=== PATIENT | male | born 1930 | race Caucasian/White ===

== ENCOUNTER 2017-03-15 18:10 | Emergency (ER) | payer MEDICARE, OTHER ==
[2017-03-15 18:41] VITALS: BP 146/59
--- NOTE | 2017-03-15 19:13 | EDM.PDOC ---
ED HPI GENERAL MEDICAL PROBLEM - General Chief Complaint: Genitourinary Problem Stated Complaint: SENT FROM [facility] Time Seen by Provider: 03/15/17 18:55 Source of Information: Reports: Patient, Mcc Records History Limitations: Reports: Altered Mental Status - History of Present Illness INITIAL COMMENTS - FREE TEXT/NARRATIVE: Patient is a 86-year-old male with history of Alzheimer's who presents to the ED complaining of right testicular pain with redness and swelling noted to the scrotum. He was sent from [facility] for further evaluation for testicular torsion. Per skilled nursing notes this pain started on Saturday and has been constant in nature. Upon admission to the ED patients afebrile complaining of right testicle pain. He is a poor historian. There's been no documented fever, nausea/vomiting, abdominal pain, dysuria, or any additional complaints. Code status is DNR. Patient is a history of BPH, bradycardic, neuropathy, anxiety, chronic atrial fibrillation, heart failure, hearing loss, and hypertension. Current medications include acetaminophen, warfarin, Risperdal, Benadryl B12, gabapentin, lisinopril, Norvasc, Tamulosin, finasteride, Namenda Generalized Pain Score (Numeric/FACES): 9 - Related Data Allergies Allergy/AdvReac Type Severity Reaction Status Date / Time No Known Allergies Allergy Verified 03/15/17 18:43 Home Meds: Home Meds Acetaminophen [Tylenol] 975 mg PO DAILY 01/20/15 [History] Furosemide 40 mg PO DAILY 01/20/15 [History] Gabapentin [Neurontin] 600 mg PO BID 01/20/15 [History] Lisinopril 30 mg PO DAILY 01/20/15 [History] Lutein/Min/Vit C/Vit E Acetate [Ocuvite Lutein] 1 cap PO DAILY 01/20/15 [History ] Memantine [Namenda] 10 mg PO BEDTIME 01/20/15 [History] Tamsulosin HCl 1 cap PO BEDTIME 01/20/15 [History] Warfarin Sodium [Coumadin] 7.5 mg PO ASDIRECTED 01/20/15 [History] Acetaminophen [Tylenol] 650 mg PO Q6HR PRN 03/15/17 [History] Ciprofloxacin HCl [Cipro] 500 mg PO BID #14 tablet 03/15/17 [Rx] Finasteride 5 mg PO DAILY 03/15/17 [History] Simethicone 80 mg PO ASDIRECTED PRN 03/15/17 [History] Warfarin [Coumadin] 5 mg PO ASDIRECTED 03/15/17 [History] amLODIPine [Norvasc] 10 mg PO DAILY 03/15/17 [History] risperiDONE [Risperdal] 0.5 mg PO BID 03/15/17 [History] Past Medical History Other HEENT History: wears glasses Other Genitourinary History: 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 ED EXAM, RENAL/ - Physical Exam Exam: See Below Exam Limited By: Altered Mental Status General Appearance: Alert, WD/WN, No Apparent Distress Ears: Hearing Grossly Normal Nose: Normal Inspection Throat/Mouth: Normal Voice, No Airway Compromise Neck: Normal Inspection, Supple Respiratory/Chest: No Respiratory Distress, Normal Breath Sounds, No Accessory Muscle Use, Chest Non-Tender Cardiovascular: Normal Peripheral Pulses, Irregularly Irregular, Other ( Telemetry revealed episodes of runs of Vtach) GI/Abdominal: Normal Bowel Sounds, Soft, Non-Tender, No Organomegaly, No Distention (Male) Exam: Scrotal Swelling, Scrotum Tenderness (L), Scrotum Tenderness (R) , Testicular Tenderness (R). No: Inguinal Lymphadenopathy, Testicular Tenderness (L), Urethral Discharge Back Exam: Normal Inspection Neurological: Alert, CN II-XII Intact, No Motor/Sensory Deficits, Confused Psychiatric: Normal Affect, Normal Mood Skin Exam: Warm, Dry, Intact Course - Vital Signs Last Recorded V/S: Last Vital Signs Temp 98.1 F 03/15/17 18:35 Pulse 57 L 03/15/17 18:35 Resp 18 03/15/17 18:35 BP 146/59 H 03/15/17 18:35 Pulse Ox 98 03/15/17 18:35 - Orders/Labs/Meds Orders: Active Orders 24 hr Category Date Time Status EKG 12 Lead [EKG Documentation Completion] [RC] STAT Care 03/15/17 19:06 Active Peripheral IV Care [RC] . DIRECTED Care 03/15/17 19:15 Active CULTURE URINE [RM] Stat Lab 03/15/17 18:35 Received Sodium Chloride 0.9% [Saline Flush] Med 03/15/17 19:15 Active 10 ml FLUSH ASDIRECTED PRN Peripheral IV Insertion Adult [OM.PC] Stat Oth 03/15/17 19:15 Ordered Medication Orders Sodium Chloride (Saline Flush) 10 ml FLUSH ASDIRECTED PRN PRN Reason: Keep Vein Open Last Admin: 03/15/17 21:04 Dose: 10 ml Labs: Laboratory Tests 03/15/17 03/15/17 03/15/17 Range/Units 18:35 19:23 19:23 WBC 5.01 (4.23-9.07) K/mm3 RBC 4.15 L (4.63-6.08) M/mm3 Hgb 12.1 L (13.7-17.5) gm/L Hct 36.8 L (40.1-51.0) % MCV 88.7 (79.0-92.2) fl MCH 29.2 (25.7-32.2) pg MCHC 32.9 (32.2-35.5) g/dl RDW Std Deviation 48.6 H (35.1-43.9) fL Plt Count 187 (163-337) K/mm3 MPV 10.5 (9.4-12.3) fl Neut % (Auto) 66.8 (34.0-67.9) % Lymph % (Auto) 18.8 L (21.8-53.1) % Porter % (Auto) 12.2 (5.3-12.2) % Eos % (Auto) 1.8 (0.8-7.0) Baso % (Auto) 0.2 (0.1-1.2) % Neut # (Auto) 3.35 (1.78-5.38) K/mm3 Lymph # (Auto) 0.94 L (1.32-3.57) K/mm3 Porter # (Auto) 0.61 (0.30-0.82) K/mm3 Eos # (Auto) 0.09 (0.04-0.54) K/mm3 Baso # (Auto) 0.01 (0.01-0.08) K/mm3 PT (8.0-13.0) SECONDS INR Sodium 138 (136-145) mEq/L Potassium 4.0 (3.5-5.1) mEq/L Chloride 102 (98-107) mEq/L Carbon Dioxide 25 (21-32) mEq/L Anion Gap 15.0 (5-15) BUN 25 H (7-18) mg/dL Creatinine 1.3 (0.7-1.3) mg/dL Est Cr Clr Drug Dosing 43.94 mL/min Estimated GFR (MDRD) 52 (>60) mL/min BUN/Creatinine Ratio 19.2 H (14-18) Glucose 144 H (83-115) mg/dL Calcium 8.4 L (8.5-10.1) mg/dL Magnesium 1.9 (1.8-2.4) mg/dl Total Bilirubin 0.3 (0.2-1.0) mg/dL AST 17 (15-37) U/L ALT 16 (16-63) U/L Alkaline Phosphatase 53 (46-116) U/L C-Reactive Protein 3.3 H* (<1.0) mg/dL Total Protein 7.7 (6.4-8.2) g/dl Albumin 3.4 (3.4-5.0) g/dl Globulin 4.3 gm/dL Albumin/Globulin Ratio 0.8 L (1-2) Urine Color Yellow (Yellow) Urine Appearance Slt cloudy H (Clear) Urine pH 6.0 (5.0-8.0) Ur Specific [place] 1.015 (1.005-1.030) Urine Protein Negative (Negative) Urine Glucose (UA) Negative (Negative) Urine Ketones Negative (Negative) Urine Occult Blood 1+ H (Negative) Urine Nitrite Positive H (Negative) Urine Bilirubin Negative (Negative) Urine Urobilinogen 0.2 (0.2-1.0) Ur Leukocyte Esterase 3+ H (Negative) Urine RBC 0-5 (0-5) /hpf Urine WBC 75-100 H (0-5) /hpf Ur Epithelial Cells 0-5 (0-5) /hpf Urine Bacteria Many H (FEW) /hpf Urine Mucus Few (FEW) /hpf 03/15/17 Range/Units 19:23 WBC (4.23-9.07) K/mm3 RBC (4.63-6.08) M/mm3 Hgb (13.7-17.5) gm/L Hct (40.1-51.0) % MCV (79.0-92.2) fl MCH (25.7-32.2) pg MCHC (32.2-35.5) g/dl RDW Std Deviation (35.1-43.9) fL Plt Count (163-337) K/mm3 MPV (9.4-12.3) fl Neut % (Auto) (34.0-67.9) % Lymph % (Auto) (21.8-53.1) % Porter % (Auto) (5.3-12.2) % Eos % (Auto) (0.8-7.0) Baso % (Auto) (0.1-1.2) % Neut # (Auto) (1.78-5.38) K/mm3 Lymph # (Auto) (1.32-3.57) K/mm3 Porter # (Auto) (0.30-0.82) K/mm3 Eos # (Auto) (0.04-0.54) K/mm3 Baso # (Auto) (0.01-0.08) K/mm3 PT 20.7 H (8.0-13.0) SECONDS INR 1.83 Sodium (136-145) mEq/L Potassium (3.5-5.1) mEq/L Chloride (98-107) mEq/L Carbon Dioxide (21-32) mEq/L Anion Gap (5-15) BUN (7-18) mg/dL Creatinine (0.7-1.3) mg/dL Est Cr Clr Drug Dosing mL/min Estimated GFR (MDRD) (>60) mL/min BUN/Creatinine Ratio (14-18) Glucose (83-115) mg/dL Calcium (8.5-10.1) mg/dL Magnesium (1.8-2.4) mg/dl Total Bilirubin (0.2-1.0) mg/dL AST (15-37) U/L ALT (16-63) U/L Alkaline Phosphatase (46-116) U/L C-Reactive Protein (<1.0) mg/dL Total Protein (6.4-8.2) g/dl Albumin (3.4-5.0) g/dl Globulin gm/dL Albumin/Globulin Ratio (1-2) Urine Color (Yellow) Urine Appearance (Clear) Urine pH (5.0-8.0) Ur Specific [place] (1.005-1.030) Urine Protein (Negative) Urine Glucose (UA) (Negative) Urine Ketones (Negative) Urine Occult Blood (Negative) Urine Nitrite (Negative) Urine Bilirubin (Negative) Urine Urobilinogen (0.2-1.0) Ur Leukocyte Esterase (Negative) Urine RBC (0-5) /hpf Urine WBC (0-5) /hpf Ur Epithelial Cells (0-5) /hpf Urine Bacteria (FEW) /hpf Urine Mucus (FEW) /hpf Meds: Medications Generic Name Dose Route Start Last Admin Trade Name Freq PRN Reason Stop Dose Admin Sodium Chloride 10 ml 03/15/17 19:15 03/15/17 21:04 Saline Flush FLUSH 10 ml ASDIRECTED PRN Administration Keep Vein Open Discontinued Medications Generic Name Dose Route Start Last Admin Trade Name Freq PRN Reason Stop Dose Admin Levofloxacin/Dextrose 750 mg/ 150 mls @ 100 mls/hr 03/15/17 20:33 Premix IV 03/15/17 22:02 ONETIME ONE Cefepime HCl 2 gm/ Premix 50 mls @ 100 mls/hr 03/15/17 20:47 03/15/17 21:01 IV 03/15/17 21:16 100 mls/hr ONETIME ONE Administration - Re-Assessments/Exams Free Text/Narrative Re-Assessment/Exam: Peripheral IV ordered. Initial labs and studies include CBC, chem 14, CRP, INR, and magnesium level. Will obtain a EKG along with ultrasound of the scrotum and contents. During examination patient's had multiple episodes of runs of V. tach along this PM 8 beats. EKG showed atrial fibrillation with bigeminal PVCs. QTC was greater than 500. Labs reviewed: White blood cell count 5.01, hemoglobin 12.1, platelet count 27, no neutrophilia. INR 1.83 which is subtherapeutic. Chemistry panel is essentially normal. CRP 3.3. UA revealed occult blood 1+, positive nitrates, leukocyte esterase 3+, wbc's 75- 100, bacteria many. Urine culture ordered. Ordered Levaquin 750 mg IV. This has been canceled due to the prolonged QTC. Will look for other options. Patient is on calcium channel audrey which would prolong QTC as well. 03/15/17 20:48 ordered cefepime 2 g IV. 03/15/17 21:[address] Lee consulting it architect hospitalist discussed patient and ekg findings with her. Suggested sticking with cipro or levaquin.QTC is caused by calcium channel audrey. If required may have holter monitor placed to evaluate for frequency of pvc's. No admission required. Will discharge patient home with prescription for cipro 500mg twice a day for 7 days. Testicular ultrasound revealed large bilateral hydroceles with no other abnormality is definitely appreciated on to exclude ultrasound exam. Patient has no testicular torsion. He has a UTI. Holter monitor ordered. Departure - Departure Time of Disposition: 21:52 Disposition: Home, Self-Care 01 Condition: Good Clinical Impression: Bilateral hydrocele, Right testicular pain, Complicated UTI (urinary tract infection), Ventricular tachycardia (paroxysmal) - Discharge Information Prescriptions: Ciprofloxacin HCl [Cipro] 500 mg PO BID #14 tablet Instructions: Urinary Tract Infection, Adult, [id number] Referrals: Balta Cortes MD [Primary Care Provider] - Forms: ED Department Discharge Additional Instructions: Ultrasound of the testicles revealed bilateral hydroceles which can contribute to testicular pain. UA was positive for urinary tract infection. He did have some runs of ventricular tachycardia with frequent PVCs. This appeared to slow down while evaluated in the E.D. Holter monitor ordered to evaluate for frequency of events. Patient will be placed on cipro 500mg twice a day for 7 days. Please followup with PCP in 9 days for UA testing to ensure resolution and discuss results of holter monitor. Continue to take all home medications as prescribed. He will also require INR testing at at conclusion of antibiotic therapy to ensure INR is not supratherapeutic. INR was 1.83 upon evaluation in the E.D. Return to the E.D. if you develop any new or worsening symptoms. - My Orders Last 24 Hours: My Active Orders 03/15/17 18:35 CULTURE URINE [RM] Stat 03/15/17 19:06 EKG 12 Lead [EKG Documentation Completion] [RC] STAT 03/15/17 19:15 Peripheral IV Care [RC] . DIRECTED Sodium Chloride 0.9% [Saline Flush] 10 ml FLUSH ASDIRECTED PRN Peripheral IV Insertion Adult [OM.PC] Stat - Assessment/Plan Last 24 Hours: My Active Orders 03/15/17 18:35 CULTURE URINE [RM] Stat 03/15/17 19:06 EKG 12 Lead [EKG Documentation Completion] [RC] STAT 03/15/17 19:15 Peripheral IV Care [RC] . DIRECTED Sodium Chloride 0.9% [Saline Flush] 10 ml FLUSH ASDIRECTED PRN Peripheral IV Insertion Adult [OM.PC] Stat
[2017-03-15] MEDS ORDERED: Sodium Chloride 0.9% 10 ML Syringe FLUSH PRN (19:15)
[2017-03-15] MEDS ORDERED: Levofloxacin/Dextrose 5%-Water 750 MG in Premix Bag 1 BAG IV ONE (20:33)
[2017-03-15] MEDS ORDERED: Cefepime 2 GM in Premix Bag 1 BAG IV ONE (20:47)
--- NOTE | 2017-03-15 21:32 | US ---
Testicular ultrasound: Multiple real-time images of the testicles were obtained. Large hydroceles are seen on both sides. Both arterial and venous blood flow is seen within the testicles. No discrete nodule or mass is seen within the testicles. Measurements: Right testicle: 3.7 x 2.4 x 2.2 cm Left testicle: 3.4 x 2.6 x 2.4 cm. Impression: 1. Large bilateral hydroceles. 2. No other abnormality is definitely appreciated on testicular ultrasound exam. Diagnostic code #3
== END 2017-03-15 22:35 | disposition home or self-care (01) ==
LOC: JD.ED 18:10
DX: N43.3 Hydrocele, unspecified (principal); N39.0 Urinary tract infection, site not specified; I47.2 Ventricular tachycardia; G30.9 Alzheimer's disease, unspecified; F02.80 Dementia in other diseases classified elsewhere, unspecified severity, without behavioral disturbance, psychotic disturbance, mood disturbance, and anxiety; I11.0 Hypertensive heart disease with heart failure; I50.9 Heart failure, unspecified; Z79.899 Other long term (current) drug therapy; Z79.01 Long term (current) use of anticoagulants; Z87.891 Personal history of nicotine dependence
CPT/HCPCS: 36415; 76870; 80053; 81001; 83735; 85025; 85610; 86140; 87086; 93005; 93225; 93226; 93975; 96365; 99285; J0692; J7050; 87088; 87186; 93010; 99284-25

== ENCOUNTER → 2017-12-12 | Day surgery (SDC) | payer MEDICARE, MEDICAID ==
[~2017-12-12] MED LIST: Brimonidine 0.2% Ophth Soln 5 ML Bottle EYERT SCH; Cefuroxime 10 MG/ML SYRINGE EYERT SCH; Lidocaine 1% PF 2 ML SDV INJECT SCH; Phenylephrine 2.5% Ophth Soln 2 ML Bot EYERT SCH; Pilocarpine 4% Ophth Soln 15 ML Bot EYERT SCH; Polymyxin B/Trimethoprim 10 ML Bottle EYERT SCH; Tetracaine HCl/PF 0.5% 4 ML Bottle EYERT SCH; Tropicamide 1% Ophth Soln 15 ML Bottle EYERT SCH
== END | disposition home or self-care (01) ==
LOC: JD.SDS 08:48
PROVIDERS: ATTEND Ophthalmology
DX: H26.9 Unspecified cataract (principal); Z53.9 Procedure and treatment not carried out, unspecified reason
CPT/HCPCS: A9270-GY

== ENCOUNTER 2018-05-21 16:37 | Emergency (ER) | payer MEDICARE, MEDICAID ==
[2018-05-21 16:49] VITALS: BP 120/58
--- NOTE | 2018-05-21 16:59 | EDM.PDOC ---
ED HPI GENERAL MEDICAL PROBLEM - General Chief Complaint: Respiratory Problem Stated Complaint: [facility] Time Seen by Provider: 05/21/18 16:47 Source of Information: Reports: RN Notes Reviewed History Limitations: Reports: Altered Mental Status (advanced dementia) - History of Present Illness INITIAL COMMENTS - FREE TEXT/NARRATIVE: The patient is brought from [facility] by EMS with a report that he became unresponsive for 15-20 seconds while being transferred with a Christine lift. The [facility] reported that his temperature was 99.9, but EMS found his temperature to be 102.3. He is afebrile here in the ED. The patient has advanced Alzheimer dementia, and is unable to contribute to his own history. As such, the PMHx, PSHx, and PSHx are per the RN. The patient's PCP is Dr. Cortes. Generalized Pain Score (Numeric/FACES): 5 - Related Data Allergies Allergy/AdvReac Type Severity Reaction Status Date / Time No Known Allergies Allergy Verified 05/21/18 20:53 Home Meds: Home Meds Acetaminophen [Tylenol] 975 mg PO 1200 01/20/15 [History] Gabapentin [Neurontin] 600 mg PO BID 01/20/15 [History] Lisinopril 30 mg PO DAILY 01/20/15 [History] Lutein/Min/Vit C/Vit E Acetate [Ocuvite Lutein] 1 cap PO DAILY 01/20/15 [History ] Memantine [Namenda] 20 mg PO BID 01/20/15 [History] Tamsulosin HCl 1 cap PO BEDTIME 01/20/15 [History] Warfarin Sodium [Coumadin] 7.5 mg PO MOWEFR 01/20/15 [History] Acetaminophen [Tylenol] 650 mg PO BID 03/15/17 [History] Finasteride 5 mg PO DAILY 03/15/17 [History] Warfarin [Coumadin] 5 mg PO SUTUTHSA 03/15/17 [History] risperiDONE [Risperdal] 0.5 mg PO BID 03/15/17 [History] Ca Carbonate/Vitamin D3/Vit K [Calcium + D Soft Chewable Tab] 1 tab PO DAILY [History] Cyanocobalamin (Vitamin B-12) [Vitamin B-12] 1,000 mcg SQ Q30D 12/11/17 [History ] Donepezil HCl [Aricept] 10 mg PO DAILY 12/11/17 [History] Furosemide 80 mg PO BID 12/11/17 [History] NIFEdipine [Procardia XL] 30 mg PO DAILY 05/21/18 [History] Spironolactone [Aldactone] 25 mg PO DAILY 05/21/18 [History] Sulfamethoxazole/Trimethoprim [Bactrim Ds Tablet] 1 tab PO Q12H #10 tablet 05/21 [Rx] guaiFENesin [Mucinex] 600 mg PO BID 05/21/18 [History] Past Medical History HEENT History: Reports: Cataract Other HEENT History: wears glasses Cardiovascular History: Reports: Afib (hx of a-fib and CHF) Other Cardiovascular History: CHF Respiratory History: Reports: None Gastrointestinal History: Reports: None Genitourinary History: Reports: BPH Other Genitourinary History: 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 House Builder consulted for history as well as assited living home he resides in. IV placed for possible sedation need. Social & Family History - Caffeine Use Caffeine Use: Reports: Coffee - Living Situation & Occupation Living situation: Reports: Extended Care Facility ([facility]) Occupation: Retired ED ROS GENERAL - Review of Systems Review Of Systems: Unable To Obtain ED EXAM, GENERAL - Physical Exam Exam: See Below Exam Limited By: Altered Mental Status General Appearance: WD/WN, No Apparent Distress Eye Exam: Bilateral Eye: EOMI, Normal Inspection Ears: Normal External Exam Nose: Normal Inspection Throat/Mouth: Normal Inspection, Normal Lips, No Airway Compromise Head: Atraumatic, Normocephalic Neck: Normal Inspection Respiratory/Chest: No Respiratory Distress, Lungs Clear, Normal Breath Sounds, No Accessory Muscle Use Cardiovascular: Normal Peripheral Pulses, No Gallop, No JVD, No Murmur, No Rub, Bradycardia (regular) Peripheral Pulses: 4+: Radial (L), Radial (R) GI/Abdominal: Normal Bowel Sounds, Soft, Non-Tender, No Organomegaly, No Distention, No Abnormal Bruit, No Mass, Other (Obese) (Male) Exam: Circumcised, Deferred Rectal (Males) Exam: Deferred Extremities: Normal Inspection, Normal Range of Motion, Normal Capillary Refill Neurological: No Motor/Sensory Deficits, Confused Psychiatric: Other (Unable to assess) Skin Exam: Warm, Dry, Intact, Normal Color, No Rash EKG INTERPRETATION EKG Date: 05/21/18 Time: 17:46 Rhythm: A-Fib Rate (Beats/Min): 48 [place]: Normal P-Wave: Absent QRS: Wide (Nonspecific intraventricular conduction delay) ST-T: Normal QT: Prolonged (QTc 476 ms) Comparison: No Change (03/15/2017) Course - Vital Signs Last Recorded V/S: Last Vital Signs Temp Pulse 56 L 05/21/18 16:41 Resp 20 05/21/18 16:41 BP 120/58 L 05/21/18 16:41 Pulse Ox 95 05/21/18 16:41 - Orders/Labs/Meds Orders: Active Orders 24 hr Category Date Time Status CULTURE URINE [RM] Stat Lab 05/21/18 18:15 Results Labs: Laboratory Tests 05/21/18 05/21/18 05/21/18 Range/Units 17:05 17:20 17:20 WBC 8.37 (4.23-9.07) K/mm3 RBC 4.17 L (4.63-6.08) M/mm3 Hgb 12.1 L (13.7-17.5) gm/L Hct 37.7 L (40.1-51.0) % MCV 90.4 (79.0-92.2) fl MCH 29.0 (25.7-32.2) pg MCHC 32.1 L (32.2-35.5) g/dl RDW Std Deviation 51.5 H (35.1-43.9) fL Plt Count 206 (163-337) K/mm3 MPV 10.5 (9.4-12.3) fl Neutrophils % (Manual) 91 H (40-60) % Band Neutrophils % 0 (0-10) % Lymphocytes % (Manual) 4 L (20-40) % Atypical Lymphs % 0 % Monocytes % (Manual) 5 (2-10) % Eosinophils % (Manual) 0 L (0.8-7.0) % Basophils % (Manual) 0 L (0.2-1.2) Platelet Estimate Adequate Plt Morphology Comment Normal RBC Morph Comment Normal ABG pH (7.35-7.45) ABG pCO2 (35.0-45.0) mmHg ABG pO2 (80.0-100.0) mmHg ABG HCO3 (22.0-26.0) meq/L ABG O2 Saturation (96.0-97.0) % ABG Base Excess (-2-2.0) Juan Test A-a Gradient mmHg FiO2 (21.00-100.00) % Sodium 137 (136-145) mEq/L Potassium 4.9 (3.5-5.1) mEq/L Chloride 103 (98-107) mEq/L Carbon Dioxide 25 (21-32) mEq/L Anion Gap 13.9 (5-15) BUN 48 H (7-18) mg/dL Creatinine 2.1 H (0.7-1.3) mg/dL Est Cr Clr Drug Dosing TNP Estimated GFR (MDRD) 30 (>60) mL/min BUN/Creatinine Ratio 22.9 H (14-18) Glucose 120 H (83-115) mg/dL Lactic Acid (0.4-2.0) mmol/L Calcium 8.5 (8.5-10.1) mg/dL Magnesium 2.2 (1.8-2.4) mg/dl Total Bilirubin 0.4 (0.2-1.0) mg/dL AST 26 (15-37) U/L ALT 28 (16-63) U/L Alkaline Phosphatase 53 (46-116) U/L Troponin I 0.086 H* (0.00-0.056) ng/mL Total Protein 7.8 (6.4-8.2) g/dl Albumin 3.4 (3.4-5.0) g/dl Globulin 4.4 gm/dL Albumin/Globulin Ratio 0.8 L (1-2) Urine Color Yellow (Yellow) Urine Appearance Cloudy H (Clear) Urine pH 5.5 (5.0-8.0) Ur Specific [place] 1.015 (1.005-1.030) Urine Protein 1+ H (Negative) Urine Glucose (UA) Negative (Negative) Urine Ketones Trace H (Negative) Urine Occult Blood 3+ H (Negative) Urine Nitrite Negative (Negative) Urine Bilirubin Negative (Negative) Urine Urobilinogen 0.2 (0.2-1.0) Ur Leukocyte Esterase 3+ H (Negative) Urine RBC 10-20 H (0-5) /hpf Urine WBC 20-30 H (0-5) /hpf Urine WBC Clumps Moderate (NOT SEEN) /hpf Ur Epithelial Cells Not seen (0-5) /hpf Urine Bacteria Many H (FEW) /hpf Urine Mucus Rare H (FEW) /hpf 05/21/18 05/21/18 Range/Units 17:20 17:22 WBC (4.23-9.07) K/mm3 RBC (4.63-6.08) M/mm3 Hgb (13.7-17.5) gm/L Hct (40.1-51.0) % MCV (79.0-92.2) fl MCH (25.7-32.2) pg MCHC (32.2-35.5) g/dl RDW Std Deviation (35.1-43.9) fL Plt Count (163-337) K/mm3 MPV (9.4-12.3) fl Neutrophils % (Manual) (40-60) % Band Neutrophils % (0-10) % Lymphocytes % (Manual) (20-40) % Atypical Lymphs % % Monocytes % (Manual) (2-10) % Eosinophils % (Manual) (0.8-7.0) % Basophils % (Manual) (0.2-1.2) Platelet Estimate Plt Morphology Comment RBC Morph Comment ABG pH 7.37 (7.35-7.45) ABG pCO2 36.2 (35.0-45.0) mmHg ABG pO2 69.0 L (80.0-100.0) mmHg ABG HCO3 20.6 L (22.0-26.0) meq/L ABG O2 Saturation 94.1 L (96.0-97.0) % ABG Base Excess -3.6 L (-2-2.0) Juan Test Positive A-a Gradient 20 mmHg FiO2 21.00 (21.00-100.00) % Sodium (136-145) mEq/L Potassium (3.5-5.1) mEq/L Chloride (98-107) mEq/L Carbon Dioxide (21-32) mEq/L Anion Gap (5-15) BUN (7-18) mg/dL Creatinine (0.7-1.3) mg/dL Est Cr Clr Drug Dosing Estimated GFR (MDRD) (>60) mL/min BUN/Creatinine Ratio (14-18) Glucose (83-115) mg/dL Lactic Acid 2.1 H (0.4-2.0) mmol/L Calcium (8.5-10.1) mg/dL Magnesium (1.8-2.4) mg/dl Total Bilirubin (0.2-1.0) mg/dL AST (15-37) U/L ALT (16-63) U/L Alkaline Phosphatase (46-116) U/L Troponin I (0.00-0.056) ng/mL Total Protein (6.4-8.2) g/dl Albumin (3.4-5.0) g/dl Globulin gm/dL Albumin/Globulin Ratio (1-2) Urine Color (Yellow) Urine Appearance (Clear) Urine pH (5.0-8.0) Ur Specific [place] (1.005-1.030) Urine Protein (Negative) Urine Glucose (UA) (Negative) Urine Ketones (Negative) Urine Occult Blood (Negative) Urine Nitrite (Negative) Urine Bilirubin (Negative) Urine Urobilinogen (0.2-1.0) Ur Leukocyte Esterase (Negative) Urine RBC (0-5) /hpf Urine WBC (0-5) /hpf Urine WBC Clumps (NOT SEEN) /hpf Ur Epithelial Cells (0-5) /hpf Urine Bacteria (FEW) /hpf Urine Mucus (FEW) /hpf Meds: Medications Discontinued Medications Generic Name Dose Route Start Last Admin Trade Name Freq PRN Reason Stop Dose Admin Trimethoprim/Sulfamethoxazole 1 tab 05/21/18 18:26 05/21/18 18:29 Septra Ds PO 05/21/18 18:27 1 tab ONETIME ONE Administration - Re-Assessments/Exams Free Text/Narrative Re-Assessment/Exam: 05/21/18 16:58 Here in the ED, the patient is cognitively likely at his baseline. He opens his eyes on request, but only mumbles when asked questions, and he is unable to provide any meaningful history. He is hemodynamically stable and afebrile, saturating 95% on room air. Nevertheless, because of his history, I have ordered a sepsis workup. 05/21/18 17:17 Portable chest radiograph reviewed. Poor inspiratory effort. There is cardiomegaly, but no significant pulmonary vascular congestion to suggest decompensated CHF. No pleural effusions appreciated on this AP view. No focal infiltrate. No pneumothorax. Formal read per the Radiologist pending. 05/21/18 18:26 The patient's urinalysis is consistent with a UTI. I have ordered a urine culture, and will start the patient on oral Bactrim. 05/21/18 19:05 The patient's CBC is unremarkable. The patient's CMP is remarkable for a BUN/Cr of 48/2.1. They were 25/1.3 on 03/15. The remainder of his CMP is unremarkable. The patient's magnesium level is normal. The patient's troponin is mildly elevated at 0.086. This is likely secondary to his renal dysfunction, however, the purpose of checking the troponin was not in anticipation of cardiac intervention, but rather to determine if a recent infarct could be was possible for the patient's altered mental status. This mild elevation of troponin is not consistent with a recent infarct. The patient's lactic acid is mildly elevated at 2.1. Lactate levels greater than 2.0 represent hyperlactatemia, whereas lactic acidosis is generally defined as a serum lactate concentration above 4.0. Further, the patient's bicarbonate level is not depressed. He does not have a metabolic acidosis. The patient's ABG represents a fully compensated metabolic acidosis, however, the bicarbonate level does not match that of the chemistry panel, indicating that this is a mixed venous sample. I believe the patient may safely be returned to [facility] with a prescription for Bactrim DS. Departure - Departure Time of Disposition: 19:16 Disposition: Home, Self-Care 01 Condition: Fair Clinical Impression: UTI (urinary tract infection) - Discharge Information *PRESCRIPTION DRUG MONITORING PROGRAM REVIEWED*: Not Applicable *COPY OF PRESCRIPTION DRUG MONITORING REPORT IN PATIENT MEGAN: Not Applicable Prescriptions: Sulfamethoxazole/Trimethoprim [Bactrim Ds Tablet] 1 tab PO Q12H #10 tablet Instructions: Urinary Tract Infection, Adult, [id number] Referrals: Balta Cortes MD [Primary Care Provider] - Forms: ED Department Discharge Additional Instructions: Mr. Galvan was seen in the emergency room after [facility]. Workup in the ER included blood work, an arterial blood gas, blood cultures, a urinalysis, a chest x-ray, and an ECG. His workup found that he has a urinary tract infection and some renal insufficiency. He has been started on the antibiotic Bactrim DS. A prescription for Bactrim DS has been provided. Give one tablet of Bactrim DS every 12 hours, to complete a five-day course, as prescribed. He should be kept well hydrated. The remainder of his workup was unremarkable. A sample of his urine has been sent for culture. Please follow-up with his PCP, Dr. Cortes, on 05/26/2018, to have him check on the urine culture results, to make sure that Bactrim is the correct antibiotic. If any other problems, please do not hesitate to return Mr. Galvan to the ER. - My Orders Last 24 Hours: My Active Orders 05/21/18 18:15 CULTURE URINE [RM] Stat - Assessment/Plan Last 24 Hours: My Active Orders 05/21/18 18:15 CULTURE URINE [RM] Stat
[2018-05-21] MEDS ORDERED: Sulfamethoxazole/Trimethoprim 800-160 MG Tab PO ONE (18:26)
--- NOTE | 2018-05-22 06:55 | CR ---
Chest: Portable view of the chest was obtained. Comparison: Prior chest CT of 01/20/15. Findings: Heart is mildly enlarged. Tortuous thoracic aorta is seen. Lungs are clear with no acute parenchymal change. Bony structures are grossly intact. Impression: 1. Mild cardiomegaly. Nothing acute is appreciated on portable chest x-ray. Diagnostic code #2
== END 2018-05-21 20:25 | disposition home or self-care (01) ==
LOC: JD.ED 16:37
DX: N39.0 Urinary tract infection, site not specified (principal); I48.91 Unspecified atrial fibrillation; I50.9 Heart failure, unspecified; G30.9 Alzheimer's disease, unspecified; F02.80 Dementia in other diseases classified elsewhere, unspecified severity, without behavioral disturbance, psychotic disturbance, mood disturbance, and anxiety; Z79.899 Other long term (current) drug therapy
CPT/HCPCS: 36415; 36600; 71045; 80053; 81001; 82803; 83605; 83735; 84484; 85007; 85027; 87040; 87086; 87804; 93005; 99285; A9270; 87088; 87186

== ENCOUNTER 2018-07-10 15:31 | Emergency (ER) | payer MEDICARE, MEDICAID ==
[2018-07-10 15:43] VITALS: BP 113/52
[2018-07-10] MEDS ORDERED: Sodium Chloride 0.9% 10 ML Syringe FLUSH PRN (16:05)
--- NOTE | 2018-07-10 17:09 | EDM.PDOC ---
ED HPI GENERAL MEDICAL PROBLEM - General Chief Complaint: General Stated Complaint: [facility] Time Seen by Provider: 07/10/18 15:48 Source of Information: Reports: Patient, EMS, Assisted Records History Limitations: Reports: No Limitations - History of Present Illness INITIAL COMMENTS - FREE TEXT/NARRATIVE: The patient presents from the alf by [facility]. He was being moved with the Christine lift and he went unresponsive for about 15 minutes. He had a pulse and he was breathing but he was not responding. He was to his baseline when EMS arrived. He has a history of A-fib with bradycardia. He has no fever, chills, cough, chest pain, headache, abdominal pain, nausea and vomiting. He did have 2 large BMs after the unresponsive episode. Onset: Sudden Duration: Minutes: Severity: Moderate Improves with: Reports: None Worsens with: Reports: None Associated Symptoms: Reports: No Other Symptoms - Related Data Allergies Allergy/AdvReac Type Severity Reaction Status Date / Time No Known Allergies Allergy Verified 05/21/18 20:53 Home Meds: Home Meds Acetaminophen [Tylenol] 975 mg PO DAILY 01/20/15 [History] Gabapentin [Neurontin] 600 mg PO BID 01/20/15 [History] Lisinopril 30 mg PO DAILY 01/20/15 [History] Lutein/Min/Vit C/Vit E Acetate [Ocuvite Lutein] 1 cap PO DAILY 01/20/15 [History ] Memantine [Namenda] 20 mg PO BID 01/20/15 [History] Tamsulosin HCl 1 cap PO BEDTIME 01/20/15 [History] Warfarin Sodium [Coumadin] 7.5 mg PO MOWEFR 01/20/15 [History] Acetaminophen [Tylenol] 650 mg PO BID 03/15/17 [History] Finasteride 5 mg PO QPM 03/15/17 [History] Warfarin [Coumadin] 5 mg PO SUTUTHSA 03/15/17 [History] risperiDONE [Risperdal] 0.5 mg PO BID 03/15/17 [History] Ca Carbonate/Vitamin D3/Vit K [Calcium + D Soft Chewable Tab] 1 tab PO DAILY [History] Donepezil HCl [Aricept] 10 mg PO DAILY 12/11/17 [History] Furosemide 80 mg PO BID 12/11/17 [History] NIFEdipine [Procardia XL] 30 mg PO DAILY 05/21/18 [History] Spironolactone [Aldactone] 25 mg PO BID 05/21/18 [History] Past Medical History HEENT History: Reports: Cataract Other HEENT History: wears glasses Cardiovascular History: Reports: Afib Other Cardiovascular History: CHF Respiratory History: Reports: None Gastrointestinal History: Reports: None Genitourinary History: Reports: BPH Other Genitourinary History: pt has an incontinent 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 Credit Risk Modeler consulted for history as well as assited living home he resides in. IV placed for possible sedation need. Social & Family History - Tobacco Use Smoking Status *Q: Unknown Ever Smoked Second Hand Smoke Exposure: No - Caffeine Use Caffeine Use: Reports: Coffee - Living Situation & Occupation Living situation: Reports: Extended Care Facility ([facility] hospital) Occupation: Retired ED ROS GENERAL - Review of Systems Review Of Systems: See Below Constitutional: Reports: No Symptoms HEENT: Reports: No Symptoms Respiratory: Reports: No Symptoms Cardiovascular: Reports: Syncope. Denies: Chest Pain Endocrine: Reports: No Symptoms GI/Abdominal: Reports: Diarrhea. Denies: Abdominal Pain, Nausea, Vomiting : Reports: No Symptoms Musculoskeletal: Reports: No Symptoms Skin: Reports: No Symptoms Neurological: Reports: No Symptoms ED EXAM, GENERAL - Physical Exam Exam: See Below Exam Limited By: No Limitations General Appearance: Alert, No Apparent Distress Ears: Normal External Exam Nose: Normal Inspection Head: Atraumatic, Normocephalic Neck: Normal Inspection Respiratory/Chest: No Respiratory Distress, Lungs Clear, Normal Breath Sounds Cardiovascular: Regular Rate, Rhythm, No Edema, No Murmur GI/Abdominal: Soft, Non-Tender, No Organomegaly, No Mass Extremities: Normal Inspection Neurological: Alert, Other (He will shake his head to answer questions and he follows commands. He has generalized weakness.) EKG INTERPRETATION EKG Date: 07/10/18 Time: 15:51 Rhythm: A-Fib Rate (Beats/Min): 45 [place]: Normal P-Wave: Present QRS: Wide ST-T: Normal QT: Normal Course - Vital Signs Last Recorded V/S: Last Vital Signs Temp 96.9 F 07/10/18 15:41 Pulse 45 L 07/10/18 15:41 Resp 15 07/10/18 15:41 BP 113/52 L 07/10/18 15:41 Pulse Ox 98 07/10/18 15:41 - Orders/Labs/Meds Orders: Active Orders 24 hr Category Date Time Status Cardiac Monitoring [RC] . DIRECTED Care 07/10/18 16:05 Active EKG Documentation Completion [RC] ASDIRECTED Care 07/10/18 16:53 Active Garcia Catheter Insertion [Insert Urinary Catheter] [OM. Care 07/10/18 16:45 Ordered PC] Stat Peripheral IV Care [RC] . DIRECTED Care 07/10/18 16:06 Active Urinary Catheter Assessment [RC] ASDIRECTED Care 07/10/18 16:58 Active Sodium Chloride 0.9% [Saline Flush] Med 07/10/18 16:05 Active 10 ml FLUSH ASDIRECTED PRN Peripheral IV Insertion Adult [OM.PC] Stat Oth 07/10/18 16:05 Ordered EKG 12 Lead [EK] Stat Ther 07/10/18 16:53 Ordered Medication Orders Sodium Chloride (Saline Flush) 10 ml FLUSH ASDIRECTED PRN PRN Reason: Keep Vein Open Last Admin: 07/10/18 16:15 Dose: 10 ml Labs: Laboratory Tests 07/10/18 07/10/18 07/10/18 Range/Units 15:50 15:50 15:50 WBC 6.54 (4.23-9.07) K/mm3 RBC 4.03 L (4.63-6.08) M/mm3 Hgb 11.8 L (13.7-17.5) gm/L Hct 36.7 L (40.1-51.0) % MCV 91.1 (79.0-92.2) fl MCH 29.3 (25.7-32.2) pg MCHC 32.2 (32.2-35.5) g/dl RDW Std Deviation 54.1 H (35.1-43.9) fL Plt Count 173 (163-337) K/mm3 MPV 10.9 (9.4-12.3) fl Neut % (Auto) 72.1 H (34.0-67.9) % Lymph % (Auto) 14.7 L (21.8-53.1) % [place] % (Auto) 10.7 (5.3-12.2) % Eos % (Auto) 2.0 (0.8-7.0) Baso % (Auto) 0.3 (0.1-1.2) % Neut # (Auto) 4.72 (1.78-5.38) K/mm3 Lymph # (Auto) 0.96 L (1.32-3.57) K/mm3 [place] # (Auto) 0.70 (0.30-0.82) K/mm3 Eos # (Auto) 0.13 (0.04-0.54) K/mm3 Baso # (Auto) 0.02 (0.01-0.08) K/mm3 PT 26.5 H (9.5-12.1) SECONDS INR 2.47 Sodium 137 (136-145) mEq/L Potassium 4.7 (3.5-5.1) mEq/L Chloride 103 (98-107) mEq/L Carbon Dioxide 23 (21-32) mEq/L Anion Gap 15.7 H (5-15) BUN 66 H (7-18) mg/dL Creatinine 2.1 H (0.7-1.3) mg/dL Est Cr Clr Drug Dosing 24.31 mL/min Estimated GFR (MDRD) 30 (>60) mL/min BUN/Creatinine Ratio 31.4 H (14-18) Glucose 94 (83-115) mg/dL Calcium 8.1 L (8.5-10.1) mg/dL Magnesium 2.1 (1.8-2.4) mg/dl Total Bilirubin 0.3 (0.2-1.0) mg/dL AST 20 (15-37) U/L ALT 22 (16-63) U/L Alkaline Phosphatase 51 (46-116) U/L Troponin I 0.048 (0.00-0.056) ng/mL Total Protein 7.5 (6.4-8.2) g/dl Albumin 3.5 (3.4-5.0) g/dl Globulin 4.0 gm/dL Albumin/Globulin Ratio 0.9 L (1-2) Urine Color (Yellow) Urine Appearance (Clear) Urine pH (5.0-8.0) Ur Specific [place] (1.005-1.030) Urine Protein (Negative) Urine Glucose (UA) (Negative) Urine Ketones (Negative) Urine Occult Blood (Negative) Urine Nitrite (Negative) Urine Bilirubin (Negative) Urine Urobilinogen (0.2-1.0) Ur Leukocyte Esterase (Negative) Urine RBC (0-5) /hpf Urine WBC (0-5) /hpf Ur Squamous Epith Cells (0-5) /hpf Urine Bacteria (FEW) /hpf Hyaline Casts (0-5) /lpf Urine Mucus (FEW) /hpf 07/10/18 Range/Units 16:45 WBC (4.23-9.07) K/mm3 RBC (4.63-6.08) M/mm3 Hgb (13.7-17.5) gm/L Hct (40.1-51.0) % MCV (79.0-92.2) fl MCH (25.7-32.2) pg MCHC (32.2-35.5) g/dl RDW Std Deviation (35.1-43.9) fL Plt Count (163-337) K/mm3 MPV (9.4-12.3) fl Neut % (Auto) (34.0-67.9) % Lymph % (Auto) (21.8-53.1) % [place] % (Auto) (5.3-12.2) % Eos % (Auto) (0.8-7.0) Baso % (Auto) (0.1-1.2) % Neut # (Auto) (1.78-5.38) K/mm3 Lymph # (Auto) (1.32-3.57) K/mm3 [place] # (Auto) (0.30-0.82) K/mm3 Eos # (Auto) (0.04-0.54) K/mm3 Baso # (Auto) (0.01-0.08) K/mm3 PT (9.5-12.1) SECONDS INR Sodium (136-145) mEq/L Potassium (3.5-5.1) mEq/L Chloride (98-107) mEq/L Carbon Dioxide (21-32) mEq/L Anion Gap (5-15) BUN (7-18) mg/dL Creatinine (0.7-1.3) mg/dL Est Cr Clr Drug Dosing mL/min Estimated GFR (MDRD) (>60) mL/min BUN/Creatinine Ratio (14-18) Glucose (83-115) mg/dL Calcium (8.5-10.1) mg/dL Magnesium (1.8-2.4) mg/dl Total Bilirubin (0.2-1.0) mg/dL AST (15-37) U/L ALT (16-63) U/L Alkaline Phosphatase (46-116) U/L Troponin I (0.00-0.056) ng/mL Total Protein (6.4-8.2) g/dl Albumin (3.4-5.0) g/dl Globulin gm/dL Albumin/Globulin Ratio (1-2) Urine Color Yellow (Yellow) Urine Appearance Clear (Clear) Urine pH 6.0 (5.0-8.0) Ur Specific [place] 1.020 (1.005-1.030) Urine Protein Negative (Negative) Urine Glucose (UA) Negative (Negative) Urine Ketones Negative (Negative) Urine Occult Blood 2+ H (Negative) Urine Nitrite Negative (Negative) Urine Bilirubin Negative (Negative) Urine Urobilinogen 0.2 (0.2-1.0) Ur Leukocyte Esterase Negative (Negative) Urine RBC 5-10 H (0-5) /hpf Urine WBC 0-5 (0-5) /hpf Ur Squamous Epith Cells 0-5 (0-5) /hpf Urine Bacteria Few (FEW) /hpf Hyaline Casts 5-10 H (0-5) /lpf Urine Mucus Few (FEW) /hpf Meds: Medications Generic Name Dose Route Start Last Admin Trade Name Freq PRN Reason Stop Dose Admin Sodium Chloride 10 ml 07/10/18 16:05 07/10/18 16:15 Saline Flush FLUSH 10 ml ASDIRECTED PRN Administration Keep Vein Open - Re-Assessments/Exams Free Text/Narrative Re-Assessment/Exam: 07/10/18 17:22 I ordered an IV saline lock, EKG, labs, and a UA. His EKG shows A-fib at a low rate of 45. His Hgb was a little low at 11.8. His INR was normal at 2.47. His creatinine was elevated at 2.1 with a low GFR. This appears to be at his baseline. His troponin is negative. His UA shows no UTI. It appears he had a syncopal episode. I will put him on a holter monitor for 48 hours and I will discharge him back to the alf. Departure - Departure Time of Disposition: 17:30 Disposition: Home, Self-Care 01 Condition: Good Clinical Impression: Renal insufficiency Syncopal episodes Qualifiers: Syncope type: unspecified Qualified Code(s): R55 - Syncope and collapse - Discharge Information *PRESCRIPTION DRUG MONITORING PROGRAM REVIEWED*: Not Applicable *COPY OF PRESCRIPTION DRUG MONITORING REPORT IN PATIENT MEGAN: Not Applicable Referrals: Balta Cortes MD [Primary Care Provider] - 1 Week Forms: ED Department Discharge Additional Instructions: Take your medication as prescribed. Wear the holter monitor for 48 hours. Please return if you are worse. - My Orders Last 24 Hours: My Active Orders 07/10/18 16:05 Cardiac Monitoring [RC] . DIRECTED Sodium Chloride 0.9% [Saline Flush] 10 ml FLUSH ASDIRECTED PRN Peripheral IV Insertion Adult [OM.PC] Stat 07/10/18 16:06 Peripheral IV Care [RC] . DIRECTED 07/10/18 16:45 Garcia Catheter Insertion [Insert Urinary Catheter] [OM.PC] Stat 07/10/18 16:53 EKG Documentation Completion [RC] ASDIRECTED EKG 12 Lead [EK] Stat 07/10/18 16:58 Urinary Catheter Assessment [RC] ASDIRECTED - Assessment/Plan Last 24 Hours: My Active Orders 07/10/18 16:05 Cardiac Monitoring [RC] . DIRECTED Sodium Chloride 0.9% [Saline Flush] 10 ml FLUSH ASDIRECTED PRN Peripheral IV Insertion Adult [OM.PC] Stat 07/10/18 16:06 Peripheral IV Care [RC] . DIRECTED 07/10/18 16:45 Garcia Catheter Insertion [Insert Urinary Catheter] [OM.PC] Stat 07/10/18 16:53 EKG Documentation Completion [RC] ASDIRECTED EKG 12 Lead [EK] Stat 07/10/18 16:58 Urinary Catheter Assessment [RC] ASDIRECTED
== END 2018-07-10 18:10 ==
LOC: JD.ED 15:31 → SUPCPDRO 15:31 → JD.ED 18:10
DX: N28.9 Disorder of kidney and ureter, unspecified (principal); R55 Syncope and collapse; I48.91 Unspecified atrial fibrillation; I50.9 Heart failure, unspecified; G30.9 Alzheimer's disease, unspecified; F02.80 Dementia in other diseases classified elsewhere, unspecified severity, without behavioral disturbance, psychotic disturbance, mood disturbance, and anxiety; Z79.899 Other long term (current) drug therapy
CPT/HCPCS: 36415; 80053; 81001; 83735; 84484; 85025; 85610; 93005; 93010; 93225; 93226; 99284; 99285-25

== ENCOUNTER 2019-07-01 11:15 | Emergency (ER) | payer MEDICARE, MEDICAID ==
[2019-07-01] MEDS ORDERED: Sodium Chloride 0.9% 10 ML Syringe FLUSH PRN (11:30)
--- NOTE | 2019-07-01 11:47 | EDM.PDOC ---
ED HPI GENERAL MEDICAL PROBLEM - General Chief Complaint: Cardiovascular Problem Stated Complaint: fluid retention Time Seen by Provider: 07/01/19 11:28 Source of Information: Reports: Patient, Halfway Records History Limitations: Reports: Other (Patient is slow to respond. ) - History of Present Illness INITIAL COMMENTS - FREE TEXT/NARRATIVE: Michelet Galvan is a 88 y/o male who presents to the ER with cc fluid retention and SOB. He is a resident at [facility] with a significant history of Alzheimer , dementia, Chronic atrial fibrillation, hypothyroidism, hypermetropia, bilateral, macular degeneration, anxiety disorder, chronic diastolic congestive heart failure, hydrocele, muscle weakness, bradycardia, BPH, UTI, constipation, hearing loss, HTN, developmental disorder of speech and language, DM and polyneuropathy unspecified. He denies any fever, chills, chest pain, and abdominal pain. He was sent to ER via transfer van for further evaluation and treatment of fluid retention. Patient reports he is SOB and "hurts all over. " He is in no apparent distress at this time. Onset: Today Onset Date: 07/01/19 Onset Time: 08:00 Duration: Getting Worse, Intermittent Location: Reports: Chest Severity: Mild Improves with: Reports: None Worsens with: Reports: Breathing Associated Symptoms: Reports: Cough, Shortness of Breath. 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 (see below) Other Treatments BOLT MACHINE OPERATOR: none - Related Data Allergies Allergy/AdvReac Type Severity Reaction Status Date / Time No Known Allergies Allergy Verified 05/21/18 20:53 Home Meds: Home Meds Acetaminophen [Tylenol] 650 mg RECTAL QID PRN 01/20/15 [History] Gabapentin [Neurontin] 600 mg PO BID 01/20/15 [History] Lutein/Min/Vit C/Vit E Acetate [Ocuvite Lutein] 1 cap PO DAILY 01/20/15 [History ] Memantine [Namenda] 10 mg PO BID 01/20/15 [History] Tamsulosin HCl 0.4 mg PO BEDTIME 01/20/15 [History] Acetaminophen [Tylenol] 650 mg PO TID 03/15/17 [History] Finasteride 5 mg PO QPM 03/15/17 [History] risperiDONE [Risperdal] 0.5 mg PO BID 03/15/17 [History] Donepezil HCl [Aricept] 10 mg PO DAILY 12/11/17 [History] Furosemide 80 mg PO BID 12/11/17 [History] NIFEdipine [Procardia XL] 30 mg PO DAILY 05/21/18 [History] Calcium Carbonate [Oyster Shell Calcium] 500 mg PO DAILY 07/01/19 [History] Spironolactone [Aldactone] 50 mg PO DAILY 7 Days #30 tablet 07/01/19 [Rx] Past Medical History HEENT History: Reports: Cataract Other HEENT History: wears glasses Cardiovascular History: Reports: Afib Other Cardiovascular History: CHF Respiratory History: Reports: None Gastrointestinal History: Reports: None Genitourinary History: Reports: BPH Other Genitourinary History: pt has an incontinent 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 Transportation Worker consulted for history as well as assited living home he resides in. IV placed for possible sedation need. Social & Family History - Caffeine Use Caffeine Use: Reports: Coffee - Living Situation & Occupation Living situation: Reports: Extended Care Facility ([facility]) Occupation: Retired ED ROS GENERAL - Review of Systems Review Of Systems: See Below Constitutional: Denies: Fever, Chills HEENT: Reports: Glasses, Hearing Loss Respiratory: Reports: Shortness of Breath Cardiovascular: Reports: Blood Pressure Problem, Dyspnea on Exertion, Edema. Denies: Chest Pain Endocrine: Reports: No Symptoms GI/Abdominal: Reports: Constipation : Reports: No Symptoms Musculoskeletal: Reports: Back Pain, Muscle Pain Skin: Reports: Other (Bilateral Lower venous status. ) Neurological: Reports: Confusion, Trouble Speaking, Difficulty Walking Psychiatric: Reports: Agitation, Confusion, Depression, Other (history of dementia and Alzheimer's.) Hematologic/Lymphatic: Reports: No Symptoms Immunologic: Reports: No Symptoms ED EXAM, GENERAL - Physical Exam Exam: See Below Exam Limited By: No Limitations General Appearance: Alert, WD/WN, No Apparent Distress Neck: Normal Inspection, Supple, Non-Tender, Full Range of Motion Respiratory/Chest: No Respiratory Distress, No Accessory Muscle Use, Chest Non- Tender, Decreased Breath Sounds, Crackles Cardiovascular: Normal Peripheral Pulses, Irregularly Irregular, Other ( Bilateral +3 pedal edema, bilateral venous stasis ulcers noted) GI/Abdominal: Normal Bowel Sounds, Soft, Non-Tender Back Exam: Normal Inspection, Decreased Range of Motion Extremities: Normal Capillary Refill, Pedal Edema, Other (Bilateral lower venous stasus ulcers noted) Neurological: Alert, Confused, Slow to Respond Psychiatric: Normal Affect, Normal Mood Skin Exam: Warm, Dry, Intact, Other (lower bilateral venous stasus. ) Lymphatic: No Adenopathy EKG INTERPRETATION EKG Date: 07/01/19 Time: 11:39 Rhythm: A-Fib Rate (Beats/Min): 70 Comparison: Change From Previous EKG EKG Interpretation Comments: atrial fibrillation with rate 7bmp, frequent multifocal PVCs, Q-waves V1-V4, large atrial, Q waves II, III, AVF old septal IA, and inferior wall IA, non specific intraventricular conduction delay, T-wave inversion I and AVL LAD (-66* ). QTC is moderately prolonged. Course - Vital Signs Text/Narrative:: Michelet Galvan is a 88 y/o male who presents to the ER with cc fluid retention and SOB. He is a resident at [facility] with a significant history of Alzheimer , dementia, Chronic atrial fibrillation, hypothyroidism, hypermetropia, bilateral, macular degeneration, anxiety disorder, chronic diastolic congestive heart failure, hydrocele, muscle weakness, bradycardia, BPH, UTI, constipation, hearing loss, HTN, developmental disorder of speech and language, DM and polyneuropathy unspecified. He denies any fever, chills, chest pain, and abdominal pain. He was sent to ER via transfer van for further evaluation and treatment of fluid retention. Patient reports he is SOB and "hurts all over. " He is in no apparent distress at this time. I will order, EKG, chest x-ray and labs. I will medicate with lasix. Last Recorded V/S: Last Vital Signs Temp 97.3 F 07/01/19 13:32 Pulse 49 L 07/01/19 13:32 Resp 20 07/01/19 13:32 BP 133/53 L 07/01/19 13:32 Pulse Ox 96 07/01/19 13:32 - Orders/Labs/Meds Orders: Active Orders 24 hr Category Date Time Status EKG Documentation Completion [RC] STAT Care 07/01/19 11:30 Active Saline Lock Insert [OM.PC] Routine Oth 07/01/19 11:30 Ordered Labs: Laboratory Tests 07/01/19 07/01/19 07/01/19 Range/Units 12:06 12:06 12:06 WBC 5.34 (4.23-9.07) K/mm3 RBC 3.76 L (4.63-6.08) M/mm3 Hgb 11.2 L (13.7-17.5) gm/dl Hct 36.3 L (40.1-51.0) % MCV 96.5 H D (79.0-92.2) fl MCH 29.8 (25.7-32.2) pg MCHC 30.9 L (32.2-35.5) g/dl RDW Std Deviation 50.7 H (35.1-43.9) fL Plt Count 182 (163-337) K/mm3 MPV 10.4 (9.4-12.3) fl Neut % (Auto) 67.3 (34.0-67.9) % Lymph % (Auto) 15.5 L (21.8-53.1) % [place] % (Auto) 10.3 (5.3-12.2) % Eos % (Auto) 6.2 (0.8-7.0) Baso % (Auto) 0.7 (0.1-1.2) % Neut # (Auto) 3.59 (1.78-5.38) K/mm3 Lymph # (Auto) 0.83 L (1.32-3.57) K/mm3 [place] # (Auto) 0.55 (0.30-0.82) K/mm3 Eos # (Auto) 0.33 (0.04-0.54) K/mm3 Baso # (Auto) 0.04 (0.01-0.08) K/mm3 Manual Slide Review Not Reportable PT 13.5 H D (9.7-12.0) SECONDS INR 1.25 Sodium 140 (136-145) mEq/L Potassium 4.0 (3.5-5.1) mEq/L Chloride 104 (98-107) mEq/L Carbon Dioxide 27 (21-32) mEq/L Anion Gap 13.0 (5-15) BUN 42 H (7-18) mg/dL Creatinine 1.5 H (0.7-1.3) mg/dL Est Cr Clr Drug Dosing 37.73 mL/min Estimated GFR (MDRD) 44 (>60) mL/min BUN/Creatinine Ratio 28.0 H (14-18) Glucose 129 H (83-115) mg/dL Calcium 8.4 L (8.5-10.1) mg/dL Magnesium (1.8-2.4) mg/dl Total Bilirubin 0.4 (0.2-1.0) mg/dL AST 17 (15-37) U/L ALT 15 L (16-63) U/L Alkaline Phosphatase 49 (46-116) U/L Troponin I 0.042 (0.00-0.056) ng/mL NT-Pro-B Natriuret Pep (0-450) pg/mL Total Protein 7.6 (6.4-8.2) g/dl Albumin 3.6 (3.4-5.0) g/dl Globulin 4.0 gm/dL Albumin/Globulin Ratio 0.9 L (1-2) 07/01/19 07/01/19 Range/Units 12:06 12:06 WBC (4.23-9.07) K/mm3 RBC (4.63-6.08) M/mm3 Hgb (13.7-17.5) gm/dl Hct (40.1-51.0) % MCV (79.0-92.2) fl MCH (25.7-32.2) pg MCHC (32.2-35.5) g/dl RDW Std Deviation (35.1-43.9) fL Plt Count (163-337) K/mm3 MPV (9.4-12.3) fl Neut % (Auto) (34.0-67.9) % Lymph % (Auto) (21.8-53.1) % [place] % (Auto) (5.3-12.2) % Eos % (Auto) (0.8-7.0) Baso % (Auto) (0.1-1.2) % Neut # (Auto) (1.78-5.38) K/mm3 Lymph # (Auto) (1.32-3.57) K/mm3 [place] # (Auto) (0.30-0.82) K/mm3 Eos # (Auto) (0.04-0.54) K/mm3 Baso # (Auto) (0.01-0.08) K/mm3 Manual Slide Review PT (9.7-12.0) SECONDS INR Sodium (136-145) mEq/L Potassium (3.5-5.1) mEq/L Chloride (98-107) mEq/L Carbon Dioxide (21-32) mEq/L Anion Gap (5-15) BUN (7-18) mg/dL Creatinine (0.7-1.3) mg/dL Est Cr Clr Drug Dosing mL/min Estimated GFR (MDRD) (>60) mL/min BUN/Creatinine Ratio (14-18) Glucose (83-115) mg/dL Calcium (8.5-10.1) mg/dL Magnesium 2.2 (1.8-2.4) mg/dl Total Bilirubin (0.2-1.0) mg/dL AST (15-37) U/L ALT (16-63) U/L Alkaline Phosphatase (46-116) U/L Troponin I (0.00-0.056) ng/mL NT-Pro-B Natriuret Pep 4209 H (0-450) pg/mL Total Protein (6.4-8.2) g/dl Albumin (3.4-5.0) g/dl Globulin gm/dL Albumin/Globulin Ratio (1-2) Meds: Medications Discontinued Medications Generic Name Dose Route Start Last Admin Trade Name Freq PRN Reason Stop Dose Admin Furosemide 60 mg 07/01/19 12:16 07/01/19 12:25 Lasix IVPUSH 07/01/19 12:17 60 mg NOW ONE Administration Sodium Chloride 10 ml 07/01/19 11:30 07/01/19 12:15 Saline Flush FLUSH 10 ml ASDIRECTED PRN Administration Keep Vein Open - Re-Assessments/Exams Free Text/Narrative Re-Assessment/Exam: 07/01/19 12:36 EKG revealed atrial fibrillation with rate 70, frequent multifocal PVCs, Q waves V1 to V4 large anterior septal IA Q waves 2 and 3 aVF old inferior wall IA , nonspecific intra-ventricular conduction delay, T wave inversion leads I and aVL, LAD (-66*) QTC is moderately prolonged. 07/01/19 12:53 WBC 5.34, RBC 3.76, hemoglobin 11.2, hematocrit 36.3, platelet count 182, PT 13.5, INR 1.25, sodium 140, potassium 4.0, chloride 104, CO2 27, BUN 42, creatinine 1.5, glucose 127, calcium 8.4, magnesium 2.2, troponin 0 0.042, and BNP 4209. Is resting comfortably on stretcher no apparent distress noted saturations 95%. 07/01/19 13:16 X-ray reveals possible left pleural effusion bilateral blunting vascular congestion and mild cardiomegaly megaly. I will discharge home with instructions to increase Aldactone to 50 mg in the morning continue 25 mg at night and follow-up with his PCP in 1 to 2 days. Instructed patient to return to the emergency room for any new or acute worsening symptoms. Patient verbalized understanding this, plan for discharge. Patient is stable at time of discharge. Discharge patient to residents at [facility]. 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 Your EKG revealed atrial fibrillation. Your blood studies were as follows bun 42 creatine 1.5, BNP 4209. TAKE Aldactone 50 MG IN THE MORNING AND 25 MG AT NIGHT FOR 7 DAYS THEN RESUME 25 MG BID. Follow up with your PCP in 1-2 days. Have repeat electrolytes performed in 7-10 days to evaluate kidney function. New dressing changes to lower extremities as previously prescribed. Elevate your lower legs to decrease fluid tension. To the emergency room for any new acute worsening symptoms. Sepsis Event Note - Evaluation Sepsis Screening Result: No Definite Risk - Focused Exam Vital Signs: Vital Signs Temp Pulse Resp BP Pulse Ox 07/01/19 13:32 97.3 F 49 L 20 133/53 L 96 07/01/19 13:08 97.3 F 53 L 20 122/51 L 95 07/01/19 12:34 97.3 F 50 L 18 125/61 92 L 07/01/19 12:17 52 L 20 106/48 L 96 07/01/19 11:42 97.5 F 64 22 H 109/45 L 95 Date Exam was Performed: 07/01/19 Time Exam was Performed: 17:21 - My Orders Last 24 Hours: My Active Orders 07/01/19 11:30 EKG Documentation Completion [RC] STAT Saline Lock Insert [OM.PC] Routine - Assessment/Plan Last 24 Hours: My Active Orders 07/01/19 11:30 EKG Documentation Completion [RC] STAT Saline Lock Insert [OM.PC] Routine
[2019-07-01] MEDS ORDERED: Furosemide 40 MG/4 ML VIAL IVPUSH ONE (12:16)
--- NOTE | 2019-07-01 13:27 | CR ---
Chest: Port view of the chest was obtained. Comparison: Prior chest x-ray of 05/21/18. Heart is enlarged. Lungs are clear with no acute parenchymal change. Upper mediastinum is within normal limits. Bony structures are grossly intact. Impression: 1. Cardiomegaly. 2. Nothing acute is otherwise seen on portable chest x-ray. Diagnostic code #2 This report was dictated in MDT
[2019-07-01 13:35] VITALS: BP 133/53; PULSE 49
== END 2019-07-01 13:47 ==
LOC: JD.ED 11:15
DX: I87.2 Venous insufficiency (chronic) (peripheral) (principal); I50.32 Chronic diastolic (congestive) heart failure; I48.91 Unspecified atrial fibrillation; F20.9 Schizophrenia, unspecified; G30.9 Alzheimer's disease, unspecified; F02.80 Dementia in other diseases classified elsewhere, unspecified severity, without behavioral disturbance, psychotic disturbance, mood disturbance, and anxiety; E66.9 Obesity, unspecified; Z79.899 Other long term (current) drug therapy; Z68.41 Body mass index [BMI] 40.0-44.9, adult
CPT/HCPCS: 36415; 71045; 71045-26; 80053; 83735; 83880; 84484; 85025; 85610; 93005; 96374; 99285-25; J1940